=== PATIENT | female | born 1950 | race Caucasian/White ===

== ENCOUNTER 2018-07-06 19:19 | Emergency (ER) | payer MEDICARE ==
[~2018-07-06] VITALS: Ht 160 cm; Wt 97.0 kg
[2018-07-06 19:33] VITALS: BP 136/75
--- NOTE | 2018-07-06 19:45 | NUR ---
pt medicated per may. erp at [facility].
--- NOTE | 2018-07-06 21:05 | NUR ---
pt d/c with d/c summary and scripts. all questions answered. pt ambulates to registration desk with steady gait for d/c home. pt denies any other needs pertaining to this visit.
== END 2018-07-06 21:07 | disposition home or self-care (01) ==
LOC: ED 20:45
DX: L50.1 Idiopathic urticaria (principal); T78.40XA Allergy, unspecified, initial encounter
CPT/HCPCS: 99283